=== PATIENT | female | born 1990 | race Caucasian/White ===

== ENCOUNTER → 2024-05-04 | Outpatient (CLI) | payer OTHER ==
[2024-05-06 19:20] LABS: ALLERGEN, FOOD, GLUTEN IGE <0.10 kU/L (<=0.34)
[2024-05-06 20:06] LABS: TISSUE TRANSGLUTAMINAS TTG,IGA <1.02 FLU (0.00-4.99)
[2024-05-07 11:10] LABS: ENDOMYSIAL ANTIBODY, IGA TITER <1:10 (<1:10)
== END ==
LOC: EDBD 18:58 → LAB SHORT 18:58 → LAB 18:58
PROVIDERS: Nurse Practitioner Family
DX: Z91.018 Allergy to other foods (principal)
CPT/HCPCS: 86003; 86231; 86258; 86364